=== PATIENT | female | born 1995 | race Asian ===

== ENCOUNTER 2024-05-18 11:03 | Outpatient (CLI) | payer MEDICAID, SELFPAY | END 2024-05-18 11:04 | disposition home or self-care (01) | LOC: NFLDREF 14:38 | PROVIDERS: Visit Provider Registered Nurse | DX: N89.8 Other specified noninflammatory disorders of vagina (principal); Z12.4 Encounter for screening for malignant neoplasm of cervix | CPT/HCPCS: 87491; 87591 ==

== ENCOUNTER 2024-05-20 07:37 | Outpatient (CLI) | payer MEDICAID, SELFPAY | END 2024-05-20 07:38 | disposition home or self-care (01) | LOC: NFLDREF 05-22 04:53 | PROVIDERS: Visit Provider Registered Nurse | DX: Z13.6 Encounter for screening for cardiovascular disorders (principal); Z13.1 Encounter for screening for diabetes mellitus | CPT/HCPCS: 80061; 82947 ==